=== PATIENT | male | born 1990 | race Caucasian/White ===

== ENCOUNTER 2024-12-22 12:30 | Outpatient (CLI) | payer OTHER, SELFPAY ==
--- NOTE | ~2024-12-22 | XR_ITS ---
EXAMINATION: XR abdomen/kub 1V, 12/22/2024 12:36 [employer] HISTORY: Flank pain, right side x 1 day, nausea, stomach pain COMPARISON: No comparisons available. Technique: 3 view. Findings: Bowel gas pattern unremarkable. No obstruction. No free air. No abnormal calcifications No acute osseous abnormality. Impression: 1. No acute abnormality. Reviewed, dictated and finalized at location [employer] Impression: 1. No acute abnormality.
== END 2024-12-22 12:31 | disposition home or self-care (01) ==
LOC: GOSHIMG 12:32
PROVIDERS: PCP Family Medicine; Visit Provider Family Medicine
DX: R10.A1 Flank pain, right side (principal)
CPT/HCPCS: 74018